=== PATIENT | female | born 1985 | race Caucasian/White ===

== ENCOUNTER 2022-01-11 08:11 | Emergency (ER) | payer BC, SELFPAY ==
[2022-01-11 08:12] VITALS: BP 140/76; PULSE 77; RESP 18; TEMP 36.8; O2SAT 100; BMI 28.3
[2022-01-11 08:32] LABS: Microscopic, Urine URINE MICROSCOPIC (MICROSCOPIC)
[2022-01-11 08:37] LABS: Basophils # 0.2 K/mm3 (0-0.2); Basophils % 2.6 % (0.1-2.0); Eosinophils # 0.1 K/mm3 (0.0-0.4); Eosinophils % 1.8 % (0.1-12.0); Hematocrit 37.2 % (37.0-47.0); Hemoglobin 12.3 g/dL (12.2-16.2); Lymphocytes # 1.6 K/mm3 (0.7-4.5); Lymphocytes % 27.2 % (10-50); Mean Corpuscular HGB Conc 33.1 g/dL (31.8-35.4); Mean Corpuscular Hemoglobin 27.1 pg (27.0-31.2); Mean Corpuscular Volume 81.8 fl (81-99); Mean Platelet Volume 8.5 fl (7.4-10.4); Monocytes # 0.4 K/mm3 (0.1-1.0); Monocytes % 6.3 % (1.7-9.3); Neutrophils # 3.7 K/mm3 (1.8-7.8); Neutrophils % 62.1 % (37.0-80.0); Platelet Count 213 K/mm3 (142-424); Red Blood Count 4.55 M/mm3 (4.20-5.40); Red Cell Distribution Width 16.2 % (11.5-17.5)
--- NOTE | 2022-01-11 08:41 | HMH.EDABDPAI ---
ED Disposition Clinical Impression: Gastroenteritis Disposition: Home, Self-Care Condition on Discharge: Good Instructions: DI for Acute Abdominal Pain Prescriptions: Hydrocod/Acet 5/325 mg [[place] 5/325mg tablet] 1 tab PO Q6HP PRN #12 tab PRN Reason: Moderate Pain Transmission Status: [facility] Dicyclomine HCl [Bentyl 10mg capsule] 10 mg PO QID #28 cap Transmission Status: Pending to [facility] Referrals: Tiff Villalobos APRN [Primary Care Provider] - - Critical Care Critical Care Time: No Attestation: On , the high probability of a clinically significant, sudden or life threatening deterioration of the following system(s) required my full and direct attention, intervention and personal management. The time I documented below is in addition to time spent performing reported procedures but includes the following listed in this critical care notation. Medical Decision Making - Medical Records Medical records reviewed: Yes: I reviewed the patient's medical records. - Jimmie Inquiry Pt receiving controlled substance: Yes Jimmie was queried for this patient: Yes Reference #:: [id number] Risks and benefits of using a controlled substance: were discussed with pt by me Vital Signs: 01/11/22 08:12 Temperature 98.2 F Temperature Source Oral Pulse Rate [Left Radial] 77 Respiratory Rate 18 Blood Pressure [Right Arm] 140/76 Blood Pressure Mean [Right Arm] 97 Blood Pressure Source [Right Arm] Automatic Cuff Blood Pressure Position [Right Arm] Sitting 02 Sat by Pulse Oximetry 100 Oxygen Delivery Method Room Air - Lab Data Lab Results 01/11/22 08:20: Urine Color Yellow, Urine Appearance Clear, Urine pH 7.5, Ur Specific [place] 1.010, Urine Protein Negative, Urine Glucose (UA) Negative, Urine Ketones Negative, Urine Blood Negative, Urine Nitrate Negative, Urine Bilirubin Negative, Urine Urobilinogen 0.2, Ur Leukocyte Esterase Negative, Urine WBC Occasional, Ur Squamous Epith Cells Occasional, Urine Bacteria Trace 01/11/22 08:20: WBC 6.0, RBC 4.55, Hgb 12.3, Hct 37.2, MCV 81.8, MCH 27.1, MCHC 33.1, RDW 16.2, Plt Count 213, MPV 8.5, Neut % (Auto) 62.1, Lymph % (Auto) 27.2, [place] % (Auto) 6.3, Eos % (Auto) 1.8, Baso % (Auto) 2.6 H, Neut # (Auto) 3.7, Lymph # (Auto) 1.6, [place] # (Auto) 0.4, Eos # (Auto) 0.1, Baso # (Auto) 0.2 01/11/22 08:20: Urine HCG, Qual Negative 01/11/22 08:20: Sodium 137, Potassium 3.9, Chloride 101, Carbon Dioxide 31 H, Anion Gap 8.9, BUN 18 H, Creatinine 0.70, Estimated Creat Clear 118, Estimated GFR 94, Est GFR ( Amer) 114, Glucose 122 H, Calcium 9.3, Total Bilirubin 0.3, AST 34, ALT 30, Alkaline Phosphatase 62, Troponin I < 0.01, Total Protein 7.7, Albumin 4.6, Globulin 3.1, Albumin/Globulin Ratio 1.5, Lipase 113 Result diagrams: 01/11/22 08:20 01/11/22 08:20 Orders (Tests/Meds): ED MEDICATIONS Discontinued Medications Generic Name Dose Route Start Last Admin Trade Name Freq PRN Reason Stop Dose Admin Sodium Chloride 1,000 mls @ 999 mls/hr 01/11/22 08:30 01/11/22 08:33 Sod Chlor 0.9% 1000ml Bag IV 01/11/22 09:30 999 mls/hr .Q1H1M LUCIAN Administration Iopamidol 75 ml 01/11/22 09:07 01/11/22 09:07 Iopamidol-370 (76%);100ml Bottle IV 01/11/22 09:08 75 ml ONCE ONE Administration Morphine Sulfate 4 mg 01/11/22 08:24 01/11/22 08:33 Morphine 4mg/Ml Syringe IV 01/11/22 08:25 4 mg ONCE ONE Administration Ondansetron HCl 4 mg 01/11/22 08:24 01/11/22 08:33 Ondansetron 4mg/2ml Vial IV 01/11/22 08:25 4 mg ONCE ONE Administration Sodium Chloride 10 ml 01/11/22 09:07 01/11/22 09:07 Sodium Chloride 0.9% 10ml Syr (Rad Only) IV 01/11/22 09:08 10 ml ONCE ONE Administration ORDERS Category Date Time Status Troponin I Q3H Lab 01/11/22 11:30 Ordered Troponin I Q3H Lab 01/11/22 14:30 Ordered - CT Data CT Scan: Abdomen, Pelvis Time Received: 10:[address] Reviewed: Yes: I have reviewed
[2022-01-11 08:43] LABS: Appearance,Urine CLEAR (Clear); Bilirubin,Urine Negative (Negative); Blood, Urine Negative (Negative); Chloride 101 mmol/L (98-107); Color,Urine YELLOW (Yellow); Glucose,Urine (UA) Negative (Negative); Ketones,Urine Negative (Negative); Leukocyte Esterase,Urine Negative (Negative); Nitrate,Urine Negative (Negative); PH,Urine 7.5 (5.0-8.5); Potassium 3.9 mmoL/L (3.5-5.1); Protein,Urine Negative (Negative); Sodium 137 mmol/L (136-145); Urobilinogen,Urine 0.2 EU/dl (0.2)
[2022-01-11 08:44] LABS: Urine Pregnancy, HCG Qual. Negative (Negative)
[2022-01-11 08:46] LABS: Alanine Aminotransferase 30 U/L (12-78); Albumin Level 4.6 g/dl (3.5-5.0); Alkaline Phosphatase 62 U/L (38-126); Anion Gap 8.9 mEq/L (5-15); Aspartate Amino Transferase 34 U/L (14-36); Bilirubin,Total 0.3 mg/dl (0.2-1.3); Blood Urea Nitrogen 18 mg/dl (7-17); Calcium 9.3 mg/dl (8.4-10.2); Carbon Dioxide 31 mmol/L (22.0-30.0); Creatinine Clearance Estimated 118 mL/min (50-200); Estimated Glomerular Filt Rate 94 ml/min (>60); GFR (African American) 114 ML/MIN (>60); Glucose 122 mg/dl (74-100); Lipase 113 U/L (23-300)
--- NOTE | 2022-01-11 08:53 | CT_ITS ---
FINAL REPORT CLINICAL HISTORY: epigastric, ruq pain FINDINGS: CT OF THE ABDOMEN AND PELVIS WITH CONTRAST Axial CT images of the abdomen and pelvis were obtained after the administration of IV contrast. Coronal reformatted images were also obtained and reviewed.This study was performed with techniques to keep radiation doses as low as reasonably achievable (ALARA). Individualized dose reduction techniques using automated exposure control or adjustment of mA and/or kV according to the patient's size were employed. Abdomen: The lung bases are clear. The heart is normal in size. The liver has an unremarkable appearance, without evidence of mass or biliary ductal dilatation. The gallbladder is present. The spleen is unremarkable. No adrenal mass is present. The pancreas has an unremarkable appearance. The kidneys are normal, without evidence of mass or hydronephrosis. The aorta is normal in caliber. There is no free fluid or adenopathy. No mass or abnormal fluid collection is seen. There are multiple fluid-filled small bowel loops in a nonspecific pattern. Pelvis: The appendix is not visualized. The urinary bladder is unremarkable. There is a large amount of stool within the colon. No inflammatory process is seen. There is no evidence of mass or adenopathy. There is no evidence of bowel obstruction. IMPRESSION: Multiple fluid-filled small bowel loops in a nonspecific pattern. Large amount of retained stool in the colon. Reviewed, Interpreted and Dictated by Juan José Pisano III, MD Transcribed by Aimee Vera Authenticated and [facility]
[2022-01-11 09:03] LABS: Bacteria,Urine Trace /lpf; Squamous Epithelial Cell,Urine Occasional #/hpf (0-5); WBC,Urine Occasional #/hpf (0-3)
[2022-01-11 09:11] LABS: Troponin I < 0.01 ng/ml (0.00-0.034)
[2022-01-11 09:55] LABS: Albumin/Globulin Ratio 1.5 (1.1-1.8); Globulin 3.1 g/dL (1.3-3.2); Total Protein,Serum 7.7 g/dl (6.3-8.2)
[2022-01-11 10:41] VITALS: BP 110/62; PULSE 52; RESP 20; TEMP 36.8; O2SAT 100
== END 2022-01-11 10:44 | disposition home or self-care (01) ==
PROVIDERS: Emergency Provider Emergency Medicine; PCP Nurse Practitioner Family
DX: K52.9 Noninfective gastroenteritis and colitis, unspecified (principal); Z88.0 Allergy status to penicillin
CPT/HCPCS: 74177; 80053; 81001; 81025; 83690; 84484; 85025; 96365; 96375; 99284; J2405; Q9967

== ENCOUNTER → 2022-04-23 06:28 | Outpatient (CLI) | payer BC, SELFPAY ==
[2022-04-23 18:33] LABS: Adenovirus,PCR Not Detected (NotDetected); Bordetella Pertussis Not Detected (NotDetected); Chlamydophila Pneumoniae, PCR Not Detected (NotDetected); Coronavirus 19, PCR Not Detected (NotDetected); Coronavirus 229E Not Detected (NotDetected); Coronavirus NL63 Not Detected (NotDetected); Coronavirus OC43 Not Detected (NotDetected); Coronovirus HKU1,PCR Not Detected (NotDetected); Human Metapneumovirus Not Detected (NotDetected); Influenza A, PCR Not Detected (NotDetected); Influenza AH1, 2009 Not Detected (NotDetected); Influenza AH1, PCR Not Detected (NotDetected); Influenza AH3,PCR Not Detected (NotDetected); Influenza B, PCR Not Detected (NotDetected); Mycoplasma Pneumoniae, PCR Not Detected (NotDetected); Parainfluenza 1, PCR Not Detected (NotDetected); Parainfluenza 2, PCR Not Detected (NotDetected); Parainfluenza 3, PCR Not Detected (NotDetected); Parainfluenza 4, PCR Not Detected (NotDetected); Respiratory Syncytial Virus Not Detected (NotDetected); Rhinovirus/Enterovirus Not Detected (NotDetected)
== END ==
LOC: LAB.DROPOF 04-24 06:29
PROVIDERS: PCP Nurse Practitioner; Visit Provider Nurse Practitioner
DX: Z20.822 Contact with and (suspected) exposure to COVID-19 (principal); J06.9 Acute upper respiratory infection, unspecified; J02.9 Acute pharyngitis, unspecified
CPT/HCPCS: 87581; 87632; 87798; C9803; U0003; U0005

== ENCOUNTER 2022-05-04 10:04 | Emergency (ER) | payer BC, SELFPAY ==
[2022-05-04 10:24] VITALS: BP 116/85; PULSE 107; RESP 18; TEMP 36.8; O2SAT 97; BMI 27.0
[2022-05-04 10:33] LABS: UTC Strep Screen (Rapid) Negative (Negative)
--- NOTE | 2022-05-04 10:37 | EXP.UTC ---
Discharge Plan Disposition Patient Disposition: Home, Self-Care Condition: Good Prescriptions Prescriptions: New methylprednisolone 4 mg Tablets,Dose Pack 4 mg PO DIRECTED Qty: 21 0RF moxifloxacin [Vigamox] 0.5 % drops 1 drp ophthalmic (eye) TID 7 Days Qty: 3 0RF azithromycin [Zithromax] 250 mg tablet 250 mg PO UD DOSE PK Qty: 6 0RF Rx Instructions: Take two (2) tablets today, then one (1) tablet days #2 thru #5 No Action loratadine 10 mg Capsule 10 mg PO DAILY Referrals Follow up/Referrals: Leslie Bains APRN [Primary Care Provider] - See instructions Activity Restrictions/Add. Instructions Additional Instructions/Restrictions: Drink plenty of fluids. Take tylenol or ibuprofen for pain or fever. Take the medications as directed. Follow up with your regular doctor. GO TO THE ER FOR ANY WORSENING SYMPTOMS Throw your tooth brush away and get a new one. Don't start the oral steroids until tomorrow, since you had the shot here today. Clinical Impressions Clinical Impression: Strep throat, Conjunctivitis Stand Alone Forms Stand Alone Forms: Work/School Release Instructions Patient Instructions: How to Instill Eye Drops, DI for Strep Throat, DI for Conjunctivitis Discharge ED Provider: Osmin Sotelo [facility] General Stated complaint: Pain and redness in both eyes Mode of Arrival: Ambulatory Source of Information: Patient Limitations: No Limitations Time Seen by Provider: 05/04/22 10:37 Description of Symptoms (Recalled from Triage Doc. by RN): pt comes in with c/o conjuctivitis, sore throat, head congestion. symptoms began monday 04/30. pt states that 04/23 she tested positive for strep and finished cefdinir for 10 days. HEENT Symptoms (Recalled from RN notes): Yes Resp Symptoms (Recalled from RN notes): No Skin Symptoms (Recalled from RN notes): No MS Symptoms (Recalled from RN notes): No Functional Status (Recalled from RN notes): n/a History of Present Illness Provider Complaint: She is here to follow up over her strep throat symptoms. She has also began to have eye matting and eye redness since yesterday. She was diagnosed with strep throat last week and treated with cefdinir. She states that she is getting worse instead of better. Related Data Home Medications Medication Instructions Recorded Confirmed loratadine 10 mg capsule 10 mg PO DAILY Allergy symptoms 05/04/22 05/04/22 Previous Rx's Medication Instructions Recorded azithromycin 250 mg tablet 250 mg PO UD DOSE PK #6 tabs 05/04/22 (Zithromax) methylprednisolone 4 mg tablets in 4 mg PO DIRECTED #21 tabs 05/04/22 a dose pack moxifloxacin 0.5 % eye drops 1 drp ophthalmic (eye) TID 7 days 05/04/22 (Vigamox) #3 mL Allergies Allergy/AdvReac Type Severity Reaction Status Date / Time Penicillins Allergy Verified 05/04/22 10:27 Worker's Comp Is this a Worker's Comp case?: No PFSH PFSH Social History Smoking Status: Never smoker alcohol intake: never current occupational status: employed Travel in the last 8 weeks: None ROS Obtained: Yes All systems reviewed & no additional complaints except as documented Constitutional Constitutional: Reports chills and Reports fever(s) Eyes Eyes: Denies change in vision, Reports eye discharge, Reports irritation and Denies eye pain ENT Ears, Nose, Mouth, and Throat: Reports as per HPI Cardiovascular Cardiovascular: Denies chest pain Respiratory Respiratory: Denies chest congestion and Reports cough Gastrointestinal Gastrointestingal: Reports nausea; Denies abdominal pain, constipation, cramping, diarrhea or vomiting Musculoskeletal Musculoskeletal: Denies arthralgias Integumentary/Breasts Skin/Breast: Denies rash Neurologic Neurologic: Denies paresthesias Physical Exam General General appearance: alert and in no apparent distress Head Head exam: atraumatic, normocephalic and normal inspection Eye Eye exam: Pres
[2022-05-04 11:04] VITALS: BP 116/85; PULSE 107; RESP 18; TEMP 36.8
== END 2022-05-04 11:04 | disposition home or self-care (01) ==
PROVIDERS: Emergency Provider Nurse Practitioner Family; PCP Nurse Practitioner
DX: H10.9 Unspecified conjunctivitis (principal); J02.9 Acute pharyngitis, unspecified
CPT/HCPCS: 87880; 96372; 99212; G0463; J0696

== ENCOUNTER → 2022-07-25 14:45 | Outpatient (CLI) | payer BC, SELFPAY ==
[2022-07-25 18:51] LABS: Basophils # 0.1 K/mm3 (0-0.2); Basophils % 0.6 % (0.1-2.0); Eosinophils # 0.1 K/mm3 (0.0-0.4); Eosinophils % 0.9 % (0.1-12.0); Hematocrit 38.7 % (37.0-47.0); Hemoglobin 12.4 g/dL (12.2-16.2); Lymphocytes # 1.8 K/mm3 (0.7-4.5); Lymphocytes % 24.9 % (10-50); Mean Corpuscular HGB Conc 32.1 g/dL (31.8-35.4); Mean Corpuscular Hemoglobin 27.9 pg (27.0-31.2); Mean Corpuscular Volume 86.8 fl (81-99); Mean Platelet Volume 8.8 fl (7.4-10.4); Monocytes # 0.3 K/mm3 (0.1-1.0); Neutrophils # 5.1 K/mm3 (1.8-7.8); Neutrophils % 69.6 % (37.0-80.0); Platelet Count 245 K/mm3 (142-424); Red Blood Count 4.45 M/mm3 (4.20-5.40); Red Cell Distribution Width 14.3 % (11.5-17.5); White Blood Count 7.3 K/mm3 (4.8-10.8)
[2022-07-25 19:07] LABS: Alanine Aminotransferase 17 U/L (12-78); Albumin Level 4.6 g/dl (3.5-5.0); Albumin/Globulin Ratio 1.8 (1.1-1.8); Alkaline Phosphatase 69 U/L (38-126); Anion Gap 14.2 mEq/L (5-15); Aspartate Amino Transferase 24 U/L (14-36); Bilirubin,Total 0.3 mg/dl (0.2-1.3); Blood Urea Nitrogen 18 mg/dl (7-17); Calcium 9.3 mg/dl (8.4-10.2); Carbon Dioxide 25 mmol/L (22.0-30.0); Chloride 102 mmol/L (98-107); Chol/HDL Ratio 3.5 (1-3.5); Cholesterol 163 mg/dl (140-200); Estimated Glomerular Filt Rate 81 ml/min (>60); GFR (African American) 98 ML/MIN (>60); Globulin 2.6 g/dL (1.3-3.2); Glucose 98 mg/dl (74-100); HDL Cholesterol 46 mg/dl (40-60); Potassium 4.2 mmoL/L (3.5-5.1); Sodium 137 mmol/L (136-145); Total Protein,Serum 7.2 g/dl (6.3-8.2); Triglycerides 88 mg/dl (30-150); VLDL Cholesterol 18 mg/dL (0-40)
[2022-07-25 19:19] LABS: Direct LDL Cholesterol 91.66 mg/dL (100-129)
[2022-07-25 19:40] LABS: Thyroid Stimulating Hormone 0.76 uIU/mL (0.465-4.68)
[2022-07-27 13:15] LABS: HIV Screen 4th Generation wRfx Non Reactive (Non Reactive); HSV 2 IgG, Type Spec <0.91 index (0.00-0.90); Rapid Plasma Reagin Ab Titer Non Reactive (NonRea<1:1)
== END ==
LOC: LAB.DROPOF 07-26 06:56
PROVIDERS: PCP Nurse Practitioner; Visit Provider Nurse Practitioner
DX: Z11.3 Encounter for screening for infections with a predominantly sexual mode of transmission (principal); Z12.4 Encounter for screening for malignant neoplasm of cervix; Z13.0 Encounter for screening for diseases of the blood and blood-forming organs and certain disorders involving the immune mechanism; Z13.1 Encounter for screening for diabetes mellitus; Z13.220 Encounter for screening for lipoid disorders; Z13.29 Encounter for screening for other suspected endocrine disorder; Z11.4 Encounter for screening for human immunodeficiency virus [HIV]
CPT/HCPCS: 80053; 80061; 83036; 84443; 85025; 86592; 86695; 86703; 86790; G0432

== ENCOUNTER 2023-01-22 08:00 | Outpatient (RCR) | payer OTHER, SELFPAY ==
--- NOTE | 2023-01-03 09:21 | HMH.PTOPEV ---
PT Outpatient Evaluation Rehab PT Outpatient Evaluation Start: 01/03/23 08:31 Freq: Status: Active Protocol: Document 01/03/23 08:31 MARK (Rec: 01/03/23 09:21 MARK [id number]) E-signed By David Malave, PT Outpatient Therapy Subjective History Subjective History Pt presents s/p acute injury/ strain to left quad. Pt reports injury occurred while playing softball ~2 days ago. Pt reports transitioning from jog to run/sprint and feeling 'tearing sensation' in anterior left thigh w/ immediate onset pain. Pt reports pain, tightness, and tenderness since injury. Chief Complaint Pain,Stiff,Weakness Symptom Type Ache,Sharp,Dull Symptoms Relieved By Rest/Positioning,Ice,Elevation Symptoms Aggravated By Standing,Physical Activity, Walking Prior Functional Limitations None Current Functional Limitations Standing,Squatting,Walking, Stairs Symptom Description Intermittent Level of pain today (0-10) 0 Pain scale - at its best (0-10) 0 Pain scale - at its worst (0-10) 7 Hip/Knee Eval Gait Observation General Gait Pattern Observation Antalgic Gait Assistive Device Assistive Devices None / NA Palpation Tenderness left Knee Palpation Finding Tenderness Knee Palpation Overall Comment 3/4 rectus femoris MMT Hip Flexion Strength Grade 3- Fair- Hip Abduction Strength Grade 4- Good- Hip Adduction Strength Grade 4- Good- Hip Extension Strength Grade 4- Good- Hip External Rotation Strength Grade 4 Good Hip Internal Rotation Strength Grade 4 Good Knee Extension Strength Grade 3- Fair- Knee Flexion Strength Grade 3+ Fair+ ROM Knee Flexion Active Range of Motion ( 0-125 in supine degrees) Knee Flexion Passive Range of Motion ( 0-65 in prone degrees) Outpatient Therapy Assessment Impairments Problems/Impairmments Palpation Tenderness,Impaired Range of Motion,Impaired Strength,Impaired Gait Pattern ,Impaired Walking,Impaired Work Activities,Subjective C/O Pain,Impaired Self Care/Self Management Prognosis Rehab Potential Good Clinical Impression Consistent with Diagnosis Yes Short Term Goals Number of Weeks 4 Decreased Palpati
== END 2023-01-22 08:05 | disposition home or self-care (01) ==
LOC: PT 08:00
PROVIDERS: Visit Provider Family Medicine
DX: M79.652 Pain in left thigh (principal); S76.112A Strain of left quadriceps muscle, fascia and tendon, initial encounter
CPT/HCPCS: 20560; 97010; 97014; 97035; 97110; 97140; 97163; 97530; G0283

== ENCOUNTER 2023-11-27 18:00 | Outpatient (CLI) | payer BC, SELFPAY ==
[2023-11-27 18:21] LABS: Basophils % 0.6 % (0.1-2.0); Eosinophils # 0.1 K/mm3 (0.0-0.4); Eosinophils % 1.3 % (0.1-12.0); Hematocrit 38.5 % (37.0-47.0); Lymphocytes # 1.5 K/mm3 (0.7-4.5); Lymphocytes % 26.9 % (10-50); Mean Corpuscular HGB Conc 31.2 g/dL (31.8-35.4); Mean Corpuscular Hemoglobin 26.5 pg (27.0-31.2); Mean Corpuscular Volume 84.9 fl (81-99); Mean Platelet Volume 8.9 fl (7.4-10.4); Monocytes # 0.3 K/mm3 (0.1-1.0); Monocytes % 5.2 % (1.7-9.3); Neutrophils # 3.6 K/mm3 (1.8-7.8); Platelet Count 256 K/mm3 (142-424); Red Blood Count 4.53 M/mm3 (4.20-5.40); Red Cell Distribution Width 16.3 % (11.5-17.5); White Blood Count 5.5 K/mm3 (4.8-10.8)
[2023-11-27 18:52] LABS: 25-OH Vitamin D, Total 52.8 ng/mL (30-100)
[2023-11-27 19:02] LABS: Hemoglobin A1C 5.2 % (4.0-6.0)
[2023-11-27 20:14] LABS: Alanine Aminotransferase 21 U/L (12-78); Albumin Level 4.4 g/dl (3.5-5.0); Albumin/Globulin Ratio 1.6 (1.1-1.8); Alkaline Phosphatase 56 U/L (38-126); Aspartate Amino Transferase 33 U/L (14-36); Bilirubin,Total 0.5 mg/dl (0.2-1.3); Blood Urea Nitrogen 15 mg/dl (7-17); Calcium 9.1 mg/dl (8.4-10.2); Carbon Dioxide 25 mmol/L (22.0-30.0); Chloride 108 mmol/L (98-107); Cholesterol 210 mg/dl (140-200); Estimated Glomerular Filt Rate 80 ml/min (>60); GFR (African American) 97 ML/MIN (>60); Globulin 2.8 g/dL (1.3-3.2); Glucose 92 mg/dl (74-100); HDL Cholesterol 52 mg/dl (40-60); Sodium 141 mmol/L (136-145); Total Protein,Serum 7.2 g/dl (6.3-8.2); Triglycerides 90 mg/dl (30-150); VLDL Cholesterol 18 mg/dL (0-40)
[2023-11-27 20:25] LABS: Direct LDL Cholesterol 123.43 mg/dL (100-129)
[2023-11-27 20:45] LABS: Thyroid Stimulating Hormone 1.21 uIU/mL (0.465-4.68)
[2023-11-27 21:04] LABS: Vitamin B12 582 pg/mL (239-931)
== END 2023-11-27 23:59 | disposition home or self-care (01) ==
LOC: LAB.DROPOF 11-28 09:27
PROVIDERS: PCP Nurse Practitioner; Visit Provider Nurse Practitioner
DX: R07.89 Other chest pain (principal); Z13.1 Encounter for screening for diabetes mellitus; Z13.220 Encounter for screening for lipoid disorders; Z13.29 Encounter for screening for other suspected endocrine disorder; Z13.0 Encounter for screening for diseases of the blood and blood-forming organs and certain disorders involving the immune mechanism; Z13.21 Encounter for screening for nutritional disorder
CPT/HCPCS: 80053; 80061; 82306; 82607; 83036; 84443; 85025

== ENCOUNTER 2024-06-08 10:30 | Outpatient (CLI) | payer BC, SELFPAY ==
[2024-06-08 18:20] LABS: Basophils % 0.6 % (0.1-2.0); Eosinophils # 0.1 K/mm3 (0.0-0.4); Eosinophils % 2.5 % (0.1-12.0); Hematocrit 38.7 % (37.0-47.0); Hemoglobin 12.4 g/dL (12.2-16.2); Lymphocytes # 1.3 K/mm3 (0.7-4.5); Lymphocytes % 27.6 % (10-50); Mean Corpuscular HGB Conc 32.2 g/dL (31.8-35.4); Mean Corpuscular Hemoglobin 27.7 pg (27.0-31.2); Mean Corpuscular Volume 85.9 fl (81-99); Monocytes # 0.2 K/mm3 (0.1-1.0); Monocytes % 5.3 % (1.7-9.3); Neutrophils # 2.9 K/mm3 (1.8-7.8); Neutrophils % 63.9 % (37.0-80.0); Platelet Count 246 K/mm3 (142-424); Red Cell Distribution Width 15.3 % (11.5-17.5); White Blood Count 4.5 K/mm3 (4.8-10.8)
[2024-06-08 18:47] LABS: Alanine Aminotransferase 17 U/L (12-78); Albumin Level 4.2 g/dl (3.5-5.0); Albumin/Globulin Ratio 1.6 (1.1-1.8); Alkaline Phosphatase 42 U/L (38-126); Anion Gap 16.3 mEq/L (5-15); Aspartate Amino Transferase 21 U/L (14-36); Bilirubin,Total 0.5 mg/dl (0.2-1.3); Blood Urea Nitrogen 14 mg/dl (7-17); Calcium 8.8 mg/dl (8.4-10.2); Carbon Dioxide 26 mmol/L (22.0-30.0); Chloride 100 mmol/L (98-107); Estimated Glomerular Filt Rate 93 ml/min (>60); GFR (African American) 113 ML/MIN (>60); Globulin 2.6 g/dL (1.3-3.2); Glucose 101 mg/dl (74-100); Potassium 4.3 mmoL/L (3.5-5.1); Sodium 138 mmol/L (136-145); Total Protein,Serum 6.8 g/dl (6.3-8.2); Uric Acid 4.2 mg/dl (2.5-6.2)
[2024-06-08 18:58] LABS: Erythrocyte Sedimentation Rate 17 mm/hr (0-20)
[2024-06-10 12:24] LABS: Anti-Centromere B Antibodies <0.2 AI (0.0-0.9); Anti-DNA (DS) Ab Qn <1 IU/mL (0-9); Anti-Jo-1 <0.2 AI (0.0-0.9); Anti-Smith Antibody <0.2 AI (0.0-0.9); Antichromatin Antibodies <0.2 AI (0.0-0.9); Antiscleroderma-70 Antibodies <0.2 AI (0.0-0.9); RNP Antibodies <0.2 AI (0.0-0.9); Sjogren's Anti-SS-A <0.2 AI (0.0-0.9); Sjogren's Anti-SS-B <0.2 AI (0.0-0.9)
[2024-06-10 13:20] LABS: RA Latex Turbid. <10.0 IU/mL (<14.0)
== END 2024-06-08 23:59 | disposition home or self-care (01) ==
LOC: LAB.DROPOF 06-09 13:05
PROVIDERS: PCP Nurse Practitioner; Visit Provider Nurse Practitioner
DX: M25.551 Pain in right hip (principal)
CPT/HCPCS: 80053; 84550; 85025; 85651; 86038; 86140; 86225; 86235; 86431

== ENCOUNTER 2024-06-23 12:35 | Outpatient (CLI) | payer BC, SELFPAY ==
--- NOTE | 2024-06-23 12:42 | MR_ITS ---
FINAL REPORT CLINICAL HISTORY: right hip pain COMPARISON: None FINDINGS: Multiplanar MR imaging of the right hip was performed without contrast. There is no evidence of fracture or dislocation. There is no evidence of avascular necrosis. No bony mass is identified. There is linear increased signal at the anterior superior labrum best seen on sagittal T2 image 17. A focal tear in this region can not be excluded. No significant joint effusion is seen. Gluteus minimus peritendinitis is noted bilaterally. The musculature is intact. No soft tissue mass or cyst is identified. IMPRESSION: Possible labral tear as above. Bilateral gluteus minimus peritendinitis. Reviewed, Interpreted and Dictated by Juan José Pisano III, MD Transcribed by Jennifer Laws Authenticated and [facility]
== END 2024-06-23 23:59 | disposition home or self-care (01) ==
LOC: RAD 12:37
PROVIDERS: PCP Nurse Practitioner; Visit Provider Nurse Practitioner
DX: M25.551 Pain in right hip (principal)
CPT/HCPCS: 73721

== ENCOUNTER 2025-04-07 09:30 | Outpatient (CLI) | payer BC, SELFPAY ==
[2025-04-07 19:29] LABS: Hepatitis C Ab Qual. W/ RFX NEGATIVE (Negative)
--- OUTSIDE RECORDS SUMMARY | 2025-04-08 12:38 | XMS_ITS | Encounter Summary ---
Author Organization [facility] Address [address] [place] [address] Care Team Providers Care Industrial Custodian Name Role Phone Pcp, No Primary Care Provider Unavailabl e Reason for Referral * Consultation (Routine) - Closed Specialty Diagnoses / Procedures Referred By Contpaz t Referred To Contact Orthopaedic Surgery Diagnoses Right hip pain Kale Cantu MD [address] [place] [id number] Phone: tel: fax: [facility] [address] [place] [address] Phone: tel: fax: Referral ID Status Reason Start Date Expiration Date V isits Requested Visits Authorized [id number] Closed Specialty Services Required 06/09/2024 12/09/2025 1 1 Encounter Details Date Type Department Care Team (Late st Contact Info) Description 06/09/2024 Community [facility] [address] [place] [address] Kale Cantu MD [address] [place] [address] Right hip pain (Primary Dx) Social History Tobacco Use Types Packs/Day Years Used Date Smoking Tobacco: Never Smokeless Tobacco: Never Alcohol Use Standard Drinks/Week Comments Yes 0 (1 standard drink = 0.6 oz pur e alcohol) social use Comments No Sex and Gender Information Value Date Recorded Sex Assigned at Not on file Legal Sex Female 7:00 PM EDT Gender Identity Not on file Sexual Orientation Not on file documented as of this encounter Plan of Treatment Scheduled Referrals Name Type Priority Associated Diagnoses Order Schedule Ambulatory referral to General Orthopaedics Outpatient Referral Routine Right hip pain 1 Occurrences starting 06/09/2024 until 12/08/2025 documented as of this encounter Visit Diagnoses Diagnosis Right hip pain- Primary Pain in joint, pelvic region and thigh documented in this encounter Additional Health Concerns Assessment Noted Time A fall risk assessment has been complete d for the patient 04/14/2021 1:23 PM EDT A Body Mass Index follow-up plan has been documented for the patient 11/25/2023 2:25 PM EDT documented as of this encounter Care Teams Industrial Custodian Relationship Specialty Start Date End Date Pcp, [place] [address] PCP - General Family Medicine 02/26/23 documented as of this encounter
--- OUTSIDE RECORDS SUMMARY | 2025-04-08 12:38 | XMS_ITS | Encounter Summary ---
Author Organization Healthcare Address [address] [place] [address] Care Team Providers Care Deputy Probation Officer Name Role Phone Tiff Villalobos APRN Primary Care Provider Pcp, No Primary Care Provider Unavailabl e Encounter Details Date Type Department Care Team (Late st Contact Info) Description 03/05/2019 [facility] [address] [place] [address] Dental, Provider, DDS [address] [place], [place] [id number] Social History Tobacco Use Types Packs/Day Years Used Date Smoking Tobacco: Never Assessed Comments Unknown Sex and Gender Information Value Date Recorded Sex Assigned at Not on file Legal Sex Female 7:00 PM EDT Gender Identity Not on file Sexual Orientation Not on file documented as of this encounter Plan of Treatment Not on file documented as of this encounter Visit Diagnoses Not on filedocumented in this encounter Additional Health Concerns Infection Onset Date Last Indicated Resolved Time COVID-19 Rule-Out 04/13/2021 04/13/2021 04/13/2021 6:21 PM EDT COVID 19 (Confirmed) 04/13/2021 04/13/2021 021 5:23 AM EDT documented as of this encounter Care Teams Deputy Probation Officer Relationship Specialty Start Date End Date Tiff Villalobos APRN [address] [place] [id number] PCP - General 12/23/20 01/22/23 Pcp, Ban [address] [place] [address] PCP - General Family Medicine 02/26/23 documented as of this encounter
--- OUTSIDE RECORDS SUMMARY | 2025-04-08 12:38 | XMS_ITS | Clinical Summary ---
Author Organization [facility] Address [address] [place] [address] Care Team Providers Care Recreational Therapy Aide Name Role Phone Pcp, No Primary Care Provider Unavailabl e Allergies Active Allergy Reactions Criticality Noted Date Comments Penicillin G Unknown - Patient st ates they do not know rxn details Low 05/07/2021 Penicillins Unknown - Patient st ates they do not know rxn details Low 12/10/2014 Penicillins Medications * This document contains information received from the source organization and may not represent a complete record from that organization. meloxicam (Mobic) 15 MG tablet Take 1 tablet (15 mg) by mouth 1 (one) time each day. 06/08/20 24 Active predniSONE (Deltasone) 20 MG tablet TAKE 1 TABLET BY MOUTH TWICE DAILY FOR 5 DAYS THEN 1 TABLET ONCE DAILY FOR 5 DAYS 06/24/20 24 Active diclofenac (Voltaren) 1 % topical gelIndications:Rig ht hip pain,Greater trochanteric bursitis of right hip Place 2-4 g on the skin 4 (four) times a day. Apply as directed to R lateral hip and gluteal muscles up to 4X daily. 150 g 1 07/23/20 24 Active Additional Information Patient not taking.Reported on 02/03/2025 ibuprofen 800 MG tablet Take 1 tablet by mouth every 8 hours as needed for mild pain. 30 tablet 12/26/19 25 Active Additional Information Patient not taking.Reported on 02/03/2025 acetaminophen (Tylenol) 500 MG tablet Take 2 tablets by mouth every 8 hours as needed for pain. 30 tablet 12/26/19 Active Additional Information Patient not taking.Reported on 02/03/2025 docusate sodium (Colace) 100 MG capsule Take 1 capsule by mouth 2 times a day as needed for constipation. 30 capsule 12/26/19 Active Additional Information Patient not taking.Reported on 02/03/2025 polyethylene glycol (Miralax) 17 g packet Take 17 g by mouth daily. 10 packet 12/26/19 Active Additional Information Patient not taking.Reported on 02/03/2025 ondansetron ODT (Zofran-ODT) 4 MG disintegrating tablet Dissolve 1 tablet on the tongue every 8 hours as needed for nausea or vomiting. 20 tablet 12/26/19 Active Additional Information Patient not taking.Reported on 02/03/2025 oxyCODONE (Roxicodone) 5 MG immediate release tablet Take 1 tablet by mouth every 4 hours as needed for severe pain. 12 tablet 12/26/19 Active Additional Information Patient not taking.Reported on 02/03/2025 Active Problems Problem Noted Date Diagnosed Date Acute URI 12/16/2024 Conjunctivitis 12/16/2024 Gastroenteritis 12/16/2024 Adenomyosis 07/27/2024 Abnormal uterine bleeding (AUB) 11/25/2023 COVID-19 04/13/2021 Abscess 10/22/2019 UTI symptoms 06/23/2019 Seasonal allergies 07/07/2018 Vaginal bleeding during , antepartum Resolved Problems Problem Noted Date Diagnosed Date Resolved Date Strep throat 12/16/2024 12/16/2024 Encounters Date Type Department Care Team Description 02/03/2025 1:15 PM EDT Office Visit Medical Office Building Obstetrics and Gynecology [address], [address] [place] [address] Quinn Crowell MD History of robot-assisted laparoscopic hysterectomy (Primary Dx) 02/03/2025 Travel 01/12/2025 Results Follow-Up Medical Office Building Obstetrics and Gynecology [address], [address] [place] [address] Quinn Crowell MD from Last 3 Months Immunizations Immunization Administration Dates Next Due Hep A, Unspecified 11/24/2018,03/26/2018 Hep B, adult 10/02/2013,06/05/2013,04/03/2013 Influenza, Unspecified 04/22/2020,2018,05/29/2018,2016,06/05/2016,05/30/2015 Influenza, injectable, quadrivalent 05/31/2014 Influenza, injectable, quadr ivalent, preservative free 05/16/2023,05/16/2021,07/01/2019 Influenza, seasonal, injecta ble, preservative free 05/18/2016 MMR 05/15/2022,,02/26/1996,1986 Moderna COVID-19 Vaccine (Re d Cap) 12+ years 07/26/2021,03/28/2021 Tdap 01/30/2022,05/11/2011 Family History Medical History Relation Name Comments Conversions - Other Father Patient' s father is Depression Father Heart attack Maternal Grandfather Hyperlipidemia Maternal Grandfather Hypertension, benign Maternal Grandfather Diabetes type II Maternal Grandmother Depression Mother Hyperlipidemia Mother Hypertension, benign Mother Hypothyroidism Mother Diabetes type II Sister Hyperlipidemia Sister Hypertension, benign Sister Relation Name Status Comments Father Maternal Grandfather Maternal Grandmother Mother Sister Social History Tobacco Use Types Packs/Day Years Used Date Smoking Tobacco: Never Passive Smoke Exposure: Never Smokeless Tobacco: Never Tobacco Cessation:Counseling Given: Not Answered Alcohol Use Standard Drinks/Week Comments Yes 0 (1 standard drink = 0.6 oz pur e alcohol) social use PHQ-2 Answer Date Recorded Patient Health Questionnaire-2 Score 0 07/23/2024 Comments No Sex and Gender Information Value Date Recorded Sex Assigned at Not on file Legal Sex Female 7:00 PM EDT Gender Identity Not on file Sexual Orientation Not on file Last Filed Vital Signs Vital Sign Reading Time Taken Comments Blood Pressure 120/84 02/03/2025 12:59 PM EDT Pulse 67 02/03/2025 12:59 PM EDT Temperature 36.6 C (97.8 F) 02/03/2025 12:59 PM EDT Respiratory Rate 16 02/03/2025 12:59 PM EDT Oxygen Saturation 100% 02/03/2025 12:59 PM EDT Inhaled Oxygen Concentration - - Weight 75.1 kg (165 lb 9.1 oz) 02/03/2025 12:59 PM EDT Height 162.6 cm (5' 4 ) 02/03/2025 12:59 PM EDT Body Mass Index 28.42 02/03/2025 12:59 PM EDT Plan of Treatment Health Maintenance Due Date Last Done Comments [facility]-/Child/Adol SDOH Screenings 1984 [facility]- SDOH Screenings 2002 [facility]-Adult SDOH Screenings 2002 [facility]-Zoster Vaccines (1 of 2) 12/06/2003 HPV Vaccines (1 - 3-dose SCDM series) 12/06/2011 [id number] Vaccine (3 - Moderna risk series) 08/23/2021 07/26/2021, 03/28/2021 [facility]-Varicella Vaccines (1 of 2 - 13+ 2-dose series) 06/12/2022 [facility]-Influenza Vaccine (#1) 04/12/202507/15, 05/16/2023, 05/16/2021, Additional history exists [facility]-Depression Screening 07/23/2025 07/23/2024 [facility]-DTaP,Tdap,and Td Vaccines (3 - Td or Tdap) 01/31/2032 01/30/2022, 05/11/2011 [facility]-Cervical Cancer Screening Discontinued [facility]-Pap Smear Discontinued 07/25/2010 [facility]-Hepatitis B Vaccines Completed 014, 06/05/2013, 04/03/2013 [facility]-Hepatitis A Vaccines Aged Out 11/24/2018, 03/12 No longer eligible based on patient's age to complete this topic [facility]-HIV Screening Completed 07/02/2020, 05/18/2016 [facility]-Hepatitis C Screening Completed 07/02/2020 [facility]-Obesity Intervention Completed 025, 12/16/2024, 07/27/2024, Additional history exists [facility]-HIB Vaccines Aged Out No longer e ligible based on patient's age to complete this topic [facility]-HPV/Cotest Discontinued [facility]-IPV Vaccines Aged Out No longer e ligible based on patient's age to complete this topic [facility]-Pneumococcal Vaccine: Pediatrics (0 to 5 Years) and At-Risk Patients (6 to 49 Years) Aged Out No longer eligible based on patient's age to complete this topic [facility]-Rotavirus Vaccines Aged Out No lo nger eligible based on patient's age to complete this topic Procedures Procedure Name Priority Date/Time Associated Diagnosis Comments HEPATITIS C ANTIBODY - ED W/REFLEX TO HCV QUANT PCR Routine 07/02/2020 2:43 PM EST HIV 1/2 ANTIBODY/ANTIGEN SCREEN WITH REFLEX TO HIV I/II DIFFERENTIATION Routine 07/02/2020 2:43 PM EST from Last 3 Months or Most Recently Relevant to Health Maintenance Results * HIV 1 & 2 Antibody/Antigen Screen (07/02/2020 2:43 PM EST) HIV 1 Result NONREACTIVE Screening for HIV 1 and 2 antibodies is NONREACTIVE. No confirmatory testing is required. SUNQUEST 07/02/2020 2:43 PM EST 07/02/2020 4:05 PM EST Osmin Brown LAB BLOOD ORDERABLES Final Resul t Performing Organization Address [facility] de Phone Number SUNQUEST * [place] Hepatitis C Antibody (07/02/2020 2:43 PM EST) [place] Hepatitis C Ab NEGATIVE Reference Range: Negative SUNQUEST 07/02/2020 2:43 PM EST 07/02/2020 4:05 PM EST Lilia Grimes MD LAB BLOOD ORDERABLES Final Res ult Performing Organization Address [facility] Co de Phone Number SUNQUEST from Last 3 Months or Most Recently Relevant to Health Maintenance Insurance [employer] Care Teams Recreational Therapy Aide Relationship Specialty Start Date End Date Pcp, [place] [address] PCP - General Family Medicine 02/26/23
--- OUTSIDE RECORDS SUMMARY | 2025-04-08 12:38 | XMS_ITS | Encounter Summary ---
Author Organization Healthcare Address [address] [place] [address] Care Team Providers Care Windows Migration Technician Name Role Phone Pcp, No Primary Care Provider Unavailabl e Encounter Details Date Type Department Care Team ([facility] Contact Info) Description 01/12/2025 Results Follow-Up Medical Office Building Obstetrics and Gynecology [address], [address] [place] [address] Quinn Crowell MD [address] [place] [address] Social History Tobacco Use Types Packs/Day Years Used Date Smoking Tobacco: Never Passive Smoke Exposure: Never Smokeless Tobacco: Never Alcohol Use Standard [...] on file documented as of this encounter Miscellaneous Notes * Telephone Encounter - Quinn Crowell MD - 01/12/2025 10:10 AM EDT Called pt to check on post-op status and review pathology results. No answer and VM left reviewing through pathology findings. Pt told to call the office if she has any questions or concerns. documented in this encounter Plan of Treatment Not on file documented as of this encounter Visit Diagnoses Not on filedocumented in this encounter Additional Health Concerns Assessment Noted Time A fall risk assessment has been complete d for the patient 07/23/2024 9:06 AM EST A Body Mass Index follow-up plan has been documented for the patient 12/16/2024 1:29 PM EDT documented as of this encounter Care Teams Windows Migration Technician Relationship Specialty Start Date End Date Pcp, [place] [address] PCP - General Family Medicine 02/26/23 documented as of this encounter
--- OUTSIDE RECORDS SUMMARY | 2025-04-08 12:38 | XMS_ITS | Clinical Summary ---
Author Organization [facility] [place] Address [address] [place] [address] Phone Care Team Providers Care Glass Blower Name Role Phone Unavailable Primary Care Provider Unavailabl e Allergies Active Allergy Reactions Criticality Noted Date Comments Penicillins 05/26/2010 Medications loratadine (CLARITIN) 10 mg Oral TabletIndications :Acute bronchitis, unspecified organism Take 1 Tab by mouth daily as needed. 30 Tab 2 07/18/2015 Active vit-iron fumarate-FA 27-0.8 mg Oral Tablet Take 1 Tab by mouth daily. Active docusate sodium (COLACE) 100 mg Oral Capsule Take 100 mg by mouth daily. Active Active Problems Problem Noted Date Diagnosed Date 25 weeks gestation of 09/13/2016 Vaginal bleeding during , antepartum Previous section 09/13/2016 Immunizations Immunization Administration Dates Next Due Influenza Vaccine Quadrivalent 05/31/2014 Tdap 05/11/2011 Surgical History Surgery Date Site/Laterality Comments SECTION SECTION 06/16/2010 Abdomen/N/A REPEAT SECTION - SCIP performed by JULIANA CEVALLOS at [facility] BREAST SURGERY Medical History Medical History Date Comments Unspecified breast disorder Family History Medical History Relation Name Comments Diabetes Maternal Grandmother Hypertension Paternal Grandfather Cancer Sister Breast Cancer Neg Hx Colon Cancer Neg Hx Eclampsia Neg Hx Ovarian Cancer Neg Hx Labor Neg Hx Spont Abortions Neg Hx Stroke Neg Hx Relation Name Status Comments Maternal Grandmother Paternal Grandfather Sister Social History Tobacco Use Types Packs/Day Years Used Date Smoking Tobacco: Never Smokeless Tobacco: Never Alcohol Use Standard Drinks/Week Comments No 0 (1 standard drink = 0.6 oz pur e alcohol) Sexually Active Control Partners Comments Yes Male Comments No Sex and Gender Information Value Date Recorded Sex Assigned at Not on file Legal Sex Female 12:23 PM EDT Gender Identity Not on file Sexual Orientation Not on file Obstetrics History Para Term AB IAB SAB Ectopic Multiple Livin g Live Births 3 2 1 2 1 Date Outcome GA Total Labor Labor/2nd/3rd Weight Sex Type Anes PTL Carmen A1 A5 Name Clin Term 39w 0d 8 lb 3.4 oz (3.725 kg) F CS-LT ranv Spinal N Livin g 8 9 STEVEN ,KATELYN BABY 1 Cindy coombs, Kathleen mejia MD Delivery Location:[facility] 006 Para M CS-LT ranv Last Filed Vital Signs Vital Sign Reading Time Taken Comments Blood Pressure 118/80 11/01/2016 1:50 PM EDT Pulse 97 11/01/2016 1:50 PM EDT Temperature 36.5 C (97.7 F) 11/01/2016 1:50 PM EDT Respiratory Rate 18 11/01/2016 1:50 PM EDT Oxygen Saturation 98% 11/01/2016 1:50 PM EDT Inhaled Oxygen Concentration - - Weight 99 kg (218 lb 3.2 oz) 11/01/2016 1:50 PM EDT Height 162.6 cm (5' 4 ) 11/01/2016 1:50 PM EDT Body Mass Index 37.45 11/01/2016 1:50 PM EDT Plan of Treatment Health Maintenance Due Date Last Done Comments Annual Wellness Exam 12/06/1987 Pap Smear 07/25/2013 07/25/2010, 11/29/2009 Cervical Cancer Screening 2014 HPV/Pap Cotest 2014 COVID-19 Vaccine ( season) 2024 07/26/2021, 03/28/2021 Breast Cancer Screening 2024 Influenza Vaccine (#1) 2025 , 05/16/2021, 07/01/2019, Additional history exists DTaP/TDaP/Td (3 - Td or Tdap) 01/31/2032 01/30/2022, 05/11/2011 Hepatitis B Vaccine Completed 10/02/2013, 06/05/2013, 04/03/2013 Meningococcal B Vaccine Aged Out No l onger eligible based on patient's age to complete this topic Pneumococcal Vaccine 0-49 Aged Out No longer eligible based on patient's age to complete this topic Goals Goal Patient Goal Type Associated Problems Recent Progress Patient-Stated? Author Eat better, exercise, reach an ideal body weight General No Tiff Pressley, RMA Procedures Procedure Name Priority Date/Time Associated Diagnosis Comments STUDENT FINANCIAL SERVICES COUNSELOR CYTOLOGY REPORT Routine 07/25/2010 5 :22 AM EST from Last 3 Months or Most Recently Relevant to Health Maintenance Results * STUDENT FINANCIAL SERVICES COUNSELOR CYTOLOGY REPORT (07/25/2010 5:22 AM EST) Help Desk Assistant Cytology Report PATIENT NAME:KATELYN STEVEN Help Desk Assistant Cytology Report Accession Number Collected Date/Time Received Date/Time [id number] 07/25/10 05:22 EST 07/26/10 05:22 EST GY Specimen Source Specimen Vag/Cerv/Endocx?: Vaginal/Cervical/E ndocervical Statement of Adequacy Satisfactory for Evaluation. Transformation Zone Absent. Diagnosis NEGATIVE FOR INTRAEPITHELIAL LESION OR MALIGNANCY. Comment The Pap Smear is a screening test that aids in the detection of cervical cancer and cancer precursors. Both false positive and false negative results can occur. The test should be used at regular intervals, and positive results should be confirmed before definitive therapy. Processed using the ThinPrep Hr Generalist automated cytology screening device ([employer]). Engineering Test Mechanic: LETICIA 08/02/2010 Completed by: RAFAEL Gerardo (Electronically signed by) 08/02/2010 [facility] Laboratory [facility] 07/25/2010 5:22 AM EST us Mic Hunter MD PATHOLOGY ORDERABLES Final Res ult [facility] [address] [place] [address] from Last 3 Months or Most Recently Relevant to Health Maintenance Insurance HMO EM HMO
--- OUTSIDE RECORDS SUMMARY | 2025-04-08 12:38 | XMS_ITS | Encounter Summary ---
Author Organization [facility] Address [address] [place] [address] Care Team Providers Care Drilling Fluids Specialist Name Role Phone Pcp, No Primary Care Provider Unavailabl e Reason for Referral * Consultation (Routine) - Closed Specialty Diagnoses / Procedures Referred By Contac t Referred To Contact Rheumatology Diagnoses ENEDINA positive Kale Cantu MD [address] [place] [address] Phone: tel: fax: Referral ID Status Reason Start Date Expiration Date V isits Requested Visits Authorized [id number] Closed Specialty Services Required 06/24/2024 12/24/2025 1 1 Encounter Details Date Type Department Care Team (Late st Contact Info) Description 06/24/2024 Community [facility] [address] [place] [address] Kale Cantu MD [address] [place] [address] ENEDINA positive (Primary Dx) Social History Tobacco Use Types [...] Associated Diagnoses Order Schedule Ambulatory referral to Rheumatology Outpatient Referral Routine ENEDINA positive 1 Occurrences starting 06/24/2024 until 12/22/2025 documented as of this encounter Visit Diagnoses Diagnosis ENEDINA positive- Primary documented in this encounter Additional Health Concerns Assessment Noted Time A fall risk assessment has been complete d for the patient 04/14/2021 1:23 PM EDT A Body Mass Index follow-up plan has been documented for the patient 11/25/2023 2:25 PM EDT documented as of this encounter Care Teams Drilling Fluids Specialist Relationship Specialty Start Date End Date Pcp, [place] [address] PCP - General Family Medicine 02/26/23 documented as of this encounter
--- OUTSIDE RECORDS SUMMARY | 2025-04-08 12:38 | XMS_ITS | Clinical Summary ---
Author Organization [facility] Address [address], [address] [place] [address] Care Team Providers Care Education Courses Sales Representative Name Role Phone Unavailable Primary Care Provider Unavailabl e Social History Tobacco Use Types Packs/Day Years Used Date Smoking Tobacco: Never Assessed Comments Unknown Sex and Gender Information Value Date Recorded Sex Assigned at Not on file Legal Sex Female 12:29 PM EDT Gender Identity Not on file Sexual Orientation Not on file Plan of Treatment Not on [place] [address] [place] [address]
--- OUTSIDE RECORDS SUMMARY | 2025-04-08 12:38 | XMS_ITS | Encounter Summary ---
Author Organization [facility] Address [address] [place] [address] Care Team Providers Care Wireless Team Member Name Role Phone Pcp, No Primary Care Provider Unavailabl e Reason for Referral * Imaging (Routine) - Closed Specialty Diagnoses / Procedures Referred By Contac t Referred To Contact Cardiology Diagnoses Other chest pain Procedures Echo, Adult Transthoracic Complete Kale Cantu MD Phone: tel: fax: Referral ID Status Reason Start Date Expiration Date V isits Requested Visits Authorized [id number] Closed Perform Procedure 11/28/2023 05/29/2025 1 1 Encounter Details Date Type Department Care Team (Late st Contact Info) Description 11/28/2023 Community [facility] [address] [place] [address] Kale Cantu MD [address] [place] [address] Other chest pain (Primary Dx) Social History Tobacco Use [...] of this encounter Plan of Treatment Scheduled Orders Name Type Priority Associated Diagnoses Orde r Schedule XR Chest 2 Views Imaging Routine Other chest pain Expected: 11/28/2023 (Approximate), Expires: 05/29/2025 documented as of this encounter Procedures Procedure Name Priority Date/Time Associated Diagnosis Comments ECHO, ADULT TRANSTHORACIC COMPLETE Routine 01/17/2024 3:21 PM EDT Other chest pain documented in this encounter Results * ECHO, ADULT TRANSTHORACIC COMPLETE (01/17/2024 3:21 PM EDT) Height 162.6 STAS ISCV Weight 73.0 STAS ISCV BSA 1.78 m2 STAS ISCV LVIDd 42 mm STAS ISCV LVIDs 27 mm STAS ISCV IVSd 7 mm STAS ISCV LVPWd 8 mm STAS ISCV LV MASS(C)D 93 g STAS ISCV LV RWT 0.36 mm STAS ISCV LV EDV (3D HM) 124 mL STAS ISCV LV ESV (3D HM) 48 mL STAS ISCV LV EF (3D HM) 61 % STAS ISCV MV E Vmax 100.0 cm/s STAS ISCV MV A Vmax 74.9 cm/s STAS ISCV MV E/A 1.3 cm/s STAS ISCV PA acc time 190 msec STAS ISCV mean PAP -7 mmHg STAS ISCV MV dec time 190 ms STAS ISCV MV P1/2t 55 ms STAS ISCV MVA(P1/2t) 4.0 cm2 STAS ISCV PA VT(ACCEL) -5.2 mmHg STAS ISCV Baseline Systolic BP 123 STAS ISCV Baseline Diastolic BP 79 STAS ISCV Anatomical Region Laterality Modality Echocardiography Narrative 01/17/2024 3:52 PM EDT Left Ventricle: Based on the linear dimension and/or 2D volumes, the left ventricle is normal in size. There is normal left ventricular myocardial thickness and mass. The left ventricular systolic function is normal. The LVEF is visually estimated at 60 - 65%. No regional wall motion abnormalities are seen. There is no recent study available for direct [id number] comparison. Left Ventricle Based on the linear dimension and/or 2D volumes, the left ventricle is normal in size. There is normal left ventricular myocardial thickness and mass. The left ventricular systolic function is normal. The LVEF is visually estimated at 60 - 65%. No regional wall motion abnormalities are seen. Right Ventricle The right ventricle is normal in size. The right ventricular systolic function is normal. Left Atrium The left atrial size is normal. The interatrial septum is intact with no evidence for an atrial septal defect. Right Atrium The right atrial size is normal. IVC/SVC Based on the IVC size and respiratory variation, the estimated right atrial pressure is 3mmHg. Mitral Valve The mitral valve leaflets are normal in appearance with no evidence of mitral valve prolapse. There is mild mitral regurgitation. There is no mitral stenosis. Tricuspid Valve The tricuspid valve is normal in appearance. There is no tricuspid regurgitation. There is no tricuspid stenosis. Aortic Valve The aortic valve appears to be trileaflet. There is no valvular regurgitation. There is no hemodynamically significant valvular aortic stenosis. Pulmonic Valve The pulmonic valve is normal in appearance. There is trace pulmonic regurgitation. There is no pulmonic stenosis. Pericardium No pericardial effusion. Great Vessels The aortic root is normal in size. The main pulmonary artery is normal in size. Study Details A complete transthoracic echocardiogram using two-dimensional (2D), m-mode, color and spectral flow Doppler imaging was performed. BP: 123/79 mmHg. Height: 162.6 cm. Weight: 73.0 kg. BSA: 1.78 m2. Study Recommendation There is no recent study available for direct [id number] comparison. Kale Cantu MD CV ECHO PROCEDURES Final Result documented in this encounter Visit Diagnoses Diagnosis Other chest pain- Primary documented in this encounter Additional Health Concerns Assessment Noted Time A fall risk assessment has been complete d for the patient 04/14/2021 1:23 PM EDT A Body Mass Index follow-up plan has been documented for the patient 11/25/2023 2:25 PM EDT documented as of this encounter Care Teams Wireless Team Member Relationship Specialty Start Date End Date Pcp, [place] [address] PCP - General Family Medicine 02/26/23 documented as of this encounter
[2025-04-09 11:22] LABS: Hepatitis B Surface Antigen Negative (Negative)
[2025-04-09 12:19] LABS: RPR W/RFX Titers Nonreactive (Nonreactive)
== END 2025-04-07 23:59 | disposition home or self-care (01) ==
LOC: LAB.DROPOF 04-08 12:37
PROVIDERS: PCP Nurse Practitioner; Visit Provider Nurse Practitioner
DX: Z20.2 Contact with and (suspected) exposure to infections with a predominantly sexual mode of transmission (principal)
CPT/HCPCS: 86592; 86803; 87389; 87491; 87529; 87591; 87661

== ENCOUNTER 2025-04-29 13:41 | Outpatient (CLI) | payer BC, SELFPAY ==
--- OUTSIDE RECORDS SUMMARY | 2025-04-29 13:45 | XMS_ITS | Encounter Summary ---
Author Organization Healthcare Address [address] [place] [address] Care Team Providers Care Assembler Latches And Springs Name Role Phone Tiff Villalobos APRN Primary Care Provider [phone] Pcp, No Primary Care Provider Unavailabl e Encounter Details Date Type Department Care Team (Late st Contact Info) Description 03/05/2019 Abstract [facility] [address] [place] [address] Dental, Provider, DDS [address] [place], [place] [id number] Social History Tobacco Use Types Packs/Day Years [...] documented as of this encounter Care Teams Assembler Latches And Springs Relationship Specialty Start Date End Date Tiff Villalobos APRN [address] [place] [id number] PCP - General 12/23/20 01/22/23 Pcp, Ban [address] [place] [address] PCP - General Family Medicine 02/26/23 documented as of this encounter
--- OUTSIDE RECORDS SUMMARY | 2025-04-29 13:45 | XMS_ITS | Clinical Summary ---
Author Organization [facility] Address [address] [place] [address] Care Team Providers Care Edge Glue Machine Tender Name Role Phone Pcp, No Primary Care [...] Resolved Date Strep throat 12/16/2024 12/16/2024 Encounters * This document contains information received from the source organization and may not represent a complete record from that organization. Date Type Department Care Team Description 04/27/2025 Immunization [facility] Vaccine [facility] [address] [place] [address] Tonio Elaine RN Need for immunization against influenza (Primary Dx) 02/03/2025 1:15 PM EDT Office Visit Medical Office Building Obstetrics and Gynecology [address] [facility], [address] [place] [address] Qunin Crowell MD History of robot-assisted laparoscopic hysterectomy (Primary Dx) 02/03/2025 Travel from Last 3 Months Immunizations Immunization Administration Dates Next Due Hep A, Unspecified 11/24/2018,03/26/2018 Hep B, adult 10/02/2013,06/05/2013,04/03/2013 Influenza, Unspecified 04/22/2020,2018,05/29/2018,2016,06/05/2016,05/30/2015 Influenza, injectable, quadrivalent 05/31/2014 Influenza, injectable, quadr ivalent, preservative free 05/16/2023,05/16/2021,07/01/2019 Influenza, seasonal, injecta ble, preservative free 04/27/2025,05/18/2016 MMR 05/15/2022,,02/26/1996,1986 Moderna COVID-19 Vaccine (Re d [...] Vaccines (1 - 3-dose SCDM series) 12/06/2011 [id number] Vaccine (3 - Moderna risk series) 08/23/2021 07/26/2021, 03/28/2021 [facility]-Varicella Vaccines (1 of 2 - 13+ 2-dose series) 06/12/2022 [facility]-Depression Screening 07/23/2025 07/23/2024 [facility]-DTaP,Tdap,and Td Vaccines [...] Completed 025, 12/16/2024, 07/27/2024, Additional history exists [facility]-Influenza Vaccine Completed 04/27/2025 , 07/15/2024, 05/16/2023, Additional history exists [facility]-HIB Vaccines Aged Out [...] ORDERABLES Final Resul t Performing Organization Address City/[facility] Co de Phone Number SUNQUEST * [place] Hepatitis C Antibody (07/02/2020 2:43 PM EST) [place] Hepatitis C Ab NEGATIVE Reference Range: Negative SUNQUEST 07/02/2020 2:43 PM EST 07/02/2020 4:05 PM EST Lilia Grimes MD LAB BLOOD ORDERABLES Final Res ult SUNQUEST from Last 3 Months or Most Recently Relevant to Health Maintenance Insurance [employer] Care Teams Edge Glue Machine Tender Relationship Specialty Start Date End Date Pcp, Ban [address] [place] [address] PCP - General Family Medicine 02/26/23
--- OUTSIDE RECORDS SUMMARY | 2025-04-29 13:45 | XMS_ITS | Encounter Summary ---
Author Organization [facility] Address [address] [place] [place] [address] Care Team Providers Care Admitting Counselor Name Role Phone Pcp, No Primary Care Provider Unavailabl e Reason for Referral * Consultation (Routine) - Closed Specialty Diagnoses / Procedures Referred By Contac t Referred To Contact Rheumatology Diagnoses ENEDINA positive Kale Cantu MD [address] [place] [address] Phone: tel: fax: Referral ID Status Reason Start Date Expiration Date V isits Requested Visits Authorized [id number] Closed Specialty Services Required 06/24/2024 12/24/2025 1 1 Encounter Details Date Type Department Care Team (Late st Contact Info) Description 06/24/2024 Community [facility] Community Practice [address] [place] [address] Kale Cantu MD [address] [place] [address] ENEDINA positive (Primary Dx) Social History Tobacco [...] documented as of this encounter Care Teams Admitting Counselor Relationship Specialty Start Date End Date Pcp, [place] [address] PCP - General Family Medicine 02/26/23 documented as of this encounter
--- OUTSIDE RECORDS SUMMARY | 2025-04-29 13:45 | XMS_ITS | Clinical Summary ---
Author Organization [facility] [place] Address [address] [place] [address] Phone Care Team Providers Care Toter Name Role Phone Unavailable Primary Care Provider [...] - SCIP performed by JULIANA CEVALLOS at [facility] BREAST SURGERY Medical History Medical History Date [...] 1 Cindy coombs, Kathleen mejia MD [facility] [address] M CS-LT ranv Last Filed [...] Cervical Cancer Screening 2014 HPV/Pap Cotest 2014 Breast Cancer Screening 2024 COVID-19 Vaccine ( season) 2025 07/26/2021, 03/28/2021 Influenza Vaccine (#1) 2025 , 05/16/2021, 07/01/2019, [...] Procedure Name Priority Date/Time Associated Diagnosis Comments RIGGER THIRD CYTOLOGY REPORT Routine 07/25/2010 5 :22 AM EST from Last 3 Months or Most Recently Relevant to Health Maintenance Results * RIGGER THIRD CYTOLOGY REPORT (07/25/2010 5:22 AM EST) Senior Net C Developer Cytology Report PATIENT NAME:KATELYN STEVEN Senior Net C Developer Cytology Report Accession Number Collected Date/Time Received Date/Time [id number] 07/25/10 05:22 EST 07/26/10 05:22 EST GY [...] before definitive therapy. Processed using the ThinPrep Terminal Worker automated cytology screening device ([employer]). Glass Inspector: LETICIA 08/02/2010 Completed by: RAFAEL Gerardo (Electronically signed by) 08/02/2010 [facility] Laboratory [facility] 07/25/2010 5:22 AM EST us Mic Hunter MD PATHOLOGY ORDERABLES Final Res ult [facility] [address] [place] [address] from Last 3 Months or Most Recently Relevant to Health Maintenance Insurance HMO EM HMO
--- OUTSIDE RECORDS SUMMARY | 2025-04-29 13:45 | XMS_ITS | Encounter Summary ---
Author Organization [facility] Address [address] [place] [address] Care Team Providers Care Longwall Machine Operator Helper Name Role Phone Pcp, No Primary Care Provider Unavailabl e Encounter Details Date Type Department Care Team ([facility] st Contact Info) Description 04/27/[address] [facility] Employee Vaccine Clinic [address] [place] [address] Tonio Elanie, RN EMERGENCY SERVICES Need for immunization against influenza (Primary Dx) Social History Tobacco Use Types [...] as of this encounter Visit Diagnoses Diagnosis Need for immunization against influenza- Primary Need for prophylactic vaccination and inoculation against influenza documented in this encounter Additional Health Concerns Assessment Noted Time A fall risk assessment has been complete d for the patient 07/23/2024 9:06 AM EST A Body Mass Index follow-up plan has been documented for the patient 02/03/2025 1:15 PM EDT documented as of this encounter Care Teams Longwall Machine Operator Helper Relationship Specialty Start Date End Date Pcp, No [address] [place] [address] PCP - General Family Medicine 02/26/23 documented as of this encounter
--- OUTSIDE RECORDS SUMMARY | 2025-04-29 13:45 | XMS_ITS | Encounter Summary ---
Author Organization [facility] Address [address] [place] [address] Care Team Providers Care Poultry Culler Name Role Phone Pcp, No Primary Care Provider Unavailabl e Reason for Referral * Imaging (Routine) - Closed Specialty Diagnoses / Procedures Referred By Contac t Referred To Contact Cardiology Diagnoses Other chest pain Procedures Echo, Adult Transthoracic Complete Kale Cantu MD Phone: tel: fax: Referral ID Status Reason Start Date Expiration Date V isits Requested Visits Authorized [id number] Closed Perform Procedure 11/28/2023 05/29/2025 1 1 Encounter Details Date Type Department Care Team (Late st Contact Info) Description 11/28/2023 Community [facility] Community Practice [address] [place] [phone] Kale Cantu MD [address] [place] [address] Other chest pain (Primary Dx) [...] ISCV MVA(P1/2t) 4.0 cm2 STAS ISCV PA RI(ACCEL) -5.2 mmHg STAS ISCV Baseline Systolic BP [...] is no recent study available for direct nwuw-nm-fmoz comparison. Left Ventricle Based on the linear [...] is no recent study available for direct lobt-aa-evjn comparison. Kale Cantu MD CV ECHO PROCEDURES [...] documented as of this encounter Care Teams Poultry Culler Relationship Specialty Start Date End Date Pcp, [place] [address] PCP - General Family Medicine 02/26/23 documented as of this encounter
--- OUTSIDE RECORDS SUMMARY | 2025-04-29 13:45 | XMS_ITS | Encounter Summary ---
Author Organization [facility] Address [address] [place] [address] Care Team Providers Care Uat Tester Name Role Phone Pcp, No Primary Care Provider Unavailabl e Reason for Referral * Consultation (Routine) - Closed Specialty Diagnoses / Procedures Referred By Contpaz t Referred To Contact Orthopaedic Surgery Diagnoses Right hip pain Kale Cantu MD [address] [place] [address] Phone: tel: fax: [facility] [address], [address] [place] [address] Phone: tel: fax: Referral ID Status Reason Start Date Expiration Date V isits Requested Visits Authorized [id number] Closed Specialty Services Required 06/09/2024 12/09/2025 1 1 Encounter Details Date Type Department Care Team (Late st Contact Info) Description 06/09/2024 Community [facility] Community Practice [address] [place] [address] Kale Cantu MD [address] [place] [address] Right hip pain (Primary Dx) Social History [...] documented as of this encounter Care Teams Uat Tester Relationship Specialty Start Date End Date Pcp, [place] [address] PCP - General Family Medicine 02/26/23 documented as of this encounter
--- OUTSIDE RECORDS SUMMARY | 2025-04-29 13:45 | XMS_ITS | Encounter Summary ---
Author Organization [facility] Address [address] [place] [address] Care Team Providers Care Frit Mixer Name Role Phone Pcp, No Primary Care Provider Unavailabl e Encounter Details Date Type Department Care Team ([facility] Contact Info) Description 01/12/2025 Results Follow-Up Medical Office Building Obstetrics and Gynecology [address] [facility], [address] [place] [address] Quinn Crowell MD [address] [facility] [address] [place] [address] Social History Tobacco Use Types [...] documented as of this encounter Care Teams Frit Mixer Relationship Specialty Start Date End Date Pcp, [place] [address] PCP - General Family Medicine 02/26/23 documented as of this encounter
--- NOTE | 2025-04-29 14:00 | MM_ITS ---
PROCEDURE INFORMATION: Exam: US Right Breast, Complete MG Bilateral Diagnostic Breast Tomosynthesis Exam date and time: 04/29/2025 2:06 PM Age: 39 years old Clinical indication: Concern for right breast lump. TECHNIQUE: Imaging protocol: Complete ultrasound of all four quadrants of the right breast and the retroareolar regions, including ultrasound of the axilla when performed. Bilateral Diagnostic tomosynthesis and 2D mammography including computer-aided detection (CAD) when performed. Unilateral or bilateral exam. Triangular marker placed on lump and spot-compression added on the right. COMPARISON: None. FINDINGS: MAMMOGRAPHY: Breast mammogram findings: Breast composition: The breasts are heterogeneously dense, which may obscure small masses. Mass: None. Architectural distortion: None. Calcifications: No suspicious calcifications. Asymmetric density: Question 4-5 cm focal nodular asymmetry in the right breast, approximately 11-1 o'clock, middle 3rd. Skin thickening: None. Axillary adenopathy: None. Other: No focal mammographic findings area of the triangular marker in the posterior right upper outer quadrant. ULTRASOUND: Breast ultrasound findings: Right sonography, all 4 quadrants, retroareolar and axilla. At the palpable concern in the upper outer quadrant at 11 o'clock 10 cm from the nipple, no sonographic findings demonstrated. At 7 o'clock 3 cm from the nipple, oval hypoechoic avascular mass measuring 0.5 x 0.4 x 0.3 cm. IMPRESSION: Patient will be recalled for additional right diagnostic mammography with spot compression in CC and MLO for further evaluation of nodular asymmetry. Given no corresponding sonographic finding demonstrated, consider adding breast MRI as well. Regarding the palpable concern as indicated with a triangular marker in the posterior right upper outer quadrant, no sonographic or mammographic findings demonstrated.Further evaluation of a palpable abnormality should be based on clinical grounds regardless of radiographic findings or lack thereof. ASSESSMENT: BI-RADS Category 0: Incomplete: Need Additional Imaging Evaluation.
== END 2025-04-29 23:59 | disposition home or self-care (01) ==
LOC: RAD 13:42
PROVIDERS: PCP Nurse Practitioner; Visit Provider Nurse Practitioner
DX: D48.61 Neoplasm of uncertain behavior of right breast (principal); N63.13 Unspecified lump in the right breast, lower outer quadrant; R92.331 Mammographic heterogeneous density, right breast
CPT/HCPCS: 76641; 77062; 77066; G0279

== ENCOUNTER 2025-05-21 09:44 | Outpatient (CLI) | payer BC, SELFPAY ==
--- OUTSIDE RECORDS SUMMARY | 2025-05-21 09:47 | XMS_ITS | Clinical Summary ---
Author Organization [facility] [place] Address [address] [place] [address] Phone Care Team Providers Care Lead Quality Technician Name Role Phone Unavailable Primary Care Provider [...] - SCIP performed by JULIANA CEVALLOS at [facility] BREAST SURGERY Medical History Medical History Date [...] 1 Cindy coombs, Kathleen mejia MD Delivery Location:[facility] [address] Para M CS-LT ranv Last [...] Procedure Name Priority Date/Time Associated Diagnosis Comments STATE GAME WARDEN CYTOLOGY REPORT Routine 07/25/2010 5 :22 AM EST from Last 3 Months or Most Recently Relevant to Health Maintenance Results * STATE GAME WARDEN CYTOLOGY REPORT (07/25/2010 5:22 AM EST) Masonry Instructor Cytology Report PATIENT NAME:KATELYN STEVEN Masonry Instructor Cytology Report Accession Number Collected Date/Time Received Date/Time [id number] 07/25/10 05:22 EST 07/26/10 05:22 EST GY [...] before definitive therapy. Processed using the ThinPrep Direct Marketing Intern automated cytology screening device ([employer]). Conditioner Tumbler: LETICIA 08/02/2010 Completed by: RAFAEL Gerardo (Electronically signed by) 08/02/2010 [facility] Laboratory [facility] 07/25/2010 5:22 AM EST us Mic Hunter MD PATHOLOGY ORDERABLES Final Res ult [facility] [address] [place] [address] from Last 3 Months or Most Recently Relevant to Health Maintenance Insurance HMO EM HMO
--- OUTSIDE RECORDS SUMMARY | 2025-05-21 09:47 | XMS_ITS | Encounter Summary ---
Author Organization [facility] Address [address] [place] [address] Care Team Providers Care Art Critic Name Role Phone Tiff Villalobos APRN Primary Care Provider Pcp, No Primary Care Provider Unavailabl e Encounter Details Date Type Department Care Team (Late st Contact Info) Description 03/05/2019 Abstract [facility] [address] [place] [address] Dental, Provider, DDS [address] [place], [place] [id number] Social History Tobacco Use Types Packs/Day Years Used Date Smoking Tobacco: Never Assessed Comments Unknown Sex and Gender Information Value Date Recorded Sex Assigned at Not on file Legal Sex Female 7:00 PM EDT Gender Identity Not on file Sexual Orientation Not on file documented as of this encounter Plan of Treatment Upcoming Encounters Date Type Department Care Team (Late Contact Info) Description 06/15/2025 10:15 AM EST Appointment [place] [facility] [address] [place] [address] documented as of this encounter Visit Diagnoses Not on filedocumented in this encounter Additional Health Concerns Infection Onset Date Last Indicated Resolved Time COVID-19 Rule-Out 04/13/2021 04/13/2021 04/13/2021 6:21 PM EDT COVID 19 (Confirmed) 04/13/2021 04/13/2021 021 5:23 AM EDT documented as of this encounter Care Teams Art Critic Relationship Specialty Start Date End Date Tiff Villalobos, KIN [address] [facility] [address] [place] [address] PCP - General 12/23/20 01/22/23 Pcp, [place] [address] PCP - General Family Medicine 02/26/23 documented as of this encounter
--- OUTSIDE RECORDS SUMMARY | 2025-05-21 09:47 | XMS_ITS | Encounter Summary ---
Author Organization [facility] Address [address] [place] [address] Care Team Providers Care Wire Coating Operator Metal Name Role Phone Pcp, No Primary Care Provider Unavailabl e Reason for Referral * Consultation (Routine) - Closed Specialty Diagnoses / Procedures Referred By Contpaz t Referred To Contact Orthopaedic Surgery Diagnoses Right hip pain Kale Cantu MD [address] [place] [address] Phone: tel: fax: [place] [facility] [address], [address] [place] [address] Phone: tel: fax: Referral ID Status Reason Start Date Expiration Date V isits Requested Visits Authorized [id number] Closed Specialty Services Required 06/09/2024 12/09/2025 1 1 Encounter Details Date Type Department Care Team (Late st Contact Info) Description 06/09/2024 Community [facility] Community Practice [address] [place] [address] Kale Cantu MD [address] [place] [address] Right hip pain (Primary Dx) Social History [...] Encounters Date Type Department Care Team (Late st Contact Info) Description 06/15/2025 10:15 AM EST Appointment [place] [facility] [address] [place] [address] Scheduled Referrals Name Type Priority Associated Diagnoses [...] documented as of this encounter Care Teams Wire Coating Operator Metal Relationship Specialty Start Date End Date Pcp, [place] [address] PCP - General Family Medicine 02/26/23 documented as of this encounter
--- OUTSIDE RECORDS SUMMARY | 2025-05-21 09:47 | XMS_ITS | Encounter Summary ---
Author Organization [facility] Address [address] [place] [address] Care Team Providers Care Pastry Assistant Name Role Phone Pcp, No Primary Care Provider Unavailabl e Encounter Details Date Type Department Care Team (Late Contact Info) Description 04/27/[address] [facility] Employee Vaccine Clinic [address] [place] [address] Tonio Elaine, RN EMERGENCY SERVICES Need for immunization against [...] Info) Description 06/15/2025 10:15 AM EST Appointment [place] [facility] [address] [place] [address] documented as of this encounter Visit Diagnoses [...] documented as of this encounter Care Teams Pastry Assistant Relationship Specialty Start Date End Date Pcp, Ban [address] [place] [address] PCP - General Family Medicine 02/26/23 documented as of this encounter
--- OUTSIDE RECORDS SUMMARY | 2025-05-21 09:47 | XMS_ITS | Clinical Summary ---
Author Organization [facility] Address [address] [facility], [address] [place] [address] Care Team Providers Care Tractor Trailer Mechanic Name Role Phone Unavailable Primary Care Provider Unavailabl e Social History Tobacco Use Types Packs/Day Years Used Date Smoking Tobacco: Never Assessed Comments Unknown Sex and Gender Information Value Date Recorded Sex Assigned at Not on file Legal Sex Female 12:29 PM EDT Gender Identity Not on file Sexual Orientation Not on file Plan of Treatment Not on file [place] [address] [address]
--- OUTSIDE RECORDS SUMMARY | 2025-05-21 09:47 | XMS_ITS | Encounter Summary ---
Author Organization [facility] Address [address] [place] [address] Care Team Providers Care Occupational Medicine Physician Name Role Phone Pcp, No Primary Care Provider Unavailabl e Encounter Details Date Type Department Care Team ([facility] Contact Info) Description 04/29/2025 Orders Only External Location [address] [place] [address] Provider, External Social History Tobacco Use Types Packs/Day Years [...] Info) Description 06/15/2025 10:15 AM EST Appointment [place] [facility] [address] [place] [address] documented as of this encounter Procedures Procedure Name Priority Date/Time Associated Diagnosis Comments US BREAST OUTSIDE IMAGES 04/29/2025 2:06 PM EDT documented in this encounter Results * US BREAST OUTSIDE IMAGES (04/29/2025 2:06 PM EDT) Anatomical Region Laterality Modality Breast Mammography 04/29/2025 2:06 PM EDT us External Provider IMG BI PROCEDURES Edited Resul t - Final documented in this encounter Visit Diagnoses Not on filedocumented in this encounter Additional Health Concerns Assessment Noted Time A fall risk assessment has been complete d for the patient 07/23/2024 9:06 AM EST A Body Mass Index follow-up plan has been documented for the patient 02/03/2025 1:15 PM EDT documented as of this encounter Care Teams Occupational Medicine Physician Relationship Specialty Start Date End Date Pcp, [place] [address] PCP - General Family Medicine 02/26/23 documented as of this encounter
--- OUTSIDE RECORDS SUMMARY | 2025-05-21 09:47 | XMS_ITS | Encounter Summary ---
Author Organization [facility] Address [address] [place] [address] Care Team Providers Care Cash Clerk Name Role Phone Pcp, No Primary Care Provider Unavailabl e Reason for Referral * Consultation (Routine) - Closed Specialty Diagnoses / Procedures Referred By Contac t Referred To Contact Rheumatology Diagnoses ENEDINA positive Kale Cantu MD [address] [place] [address] Phone: tel: fax: Referral ID Status Reason Start Date Expiration Date V isits Requested Visits Authorized [id number] Closed Specialty Services Required 06/24/2024 12/24/2025 1 1 Encounter Details Date Type Department Care Team (Late st Contact Info) Description 06/24/2024 Community [facility] Community Practice [address] [place] [address] Kale Cantu MD [address] [place] [address] ENEDINA positive (Primary Dx) Social History Tobacco [...] Info) Description 06/15/2025 10:15 AM EST Appointment [place] [facility] Rad[facility] [address] [place] [address] Scheduled Referrals Name Type Priority Associated Diagnoses [...] documented as of this encounter Care Teams Cash Clerk Relationship Specialty Start Date End Date Pcp, [place] [address] PCP - General Family Medicine 02/26/23 documented as of this encounter
--- OUTSIDE RECORDS SUMMARY | 2025-05-21 09:47 | XMS_ITS | Clinical Summary ---
Author Organization [facility] Address [address] [place] [address] Care Team Providers Care Manager Front Name Role Phone Pcp, No Primary Care [...] Active Problems Problem Noted Date Diagnosed Date Conjunctivitis 12/16/2024 Adenomyosis 07/27/2024 Abnormal uterine bleeding (AUB) 11/25/2023 COVID-19 04/13/2021 UTI symptoms 06/23/2019 Seasonal allergies 07/07/2018 Vaginal bleeding during , antepartum Resolved Problems Problem Noted Date Diagnosed Date Resolved Date Acute URI 12/16/2024 05/02/2025 Gastroenteritis 12/16/2024 05/02/2025 Strep throat 12/16/2024 12/16/2024 Abscess 10/22/2019 05/02/2025 Encounters * This document contains information received from the source organization and may not represent a complete record from that organization. Date Type Department Care Team Description 04/29/2025 Orders Only External Location [address] [place] [id number] Provider, External 04/29/2025 Orders Only External Location [address] [place] [address] Provider, External 04/27/2025 Immunization [facility] [address] [place] [address] Tonio Elaine RN Need for immunization against influenza (Primary Dx) from Last 3 Months Immunizations Immunization Administration [...] 02/03/2025 12:59 PM EDT Plan of Treatment Upcoming Encounters Date Type Department Care Team (Late st Contact Info) Description 06/15/2025 10:15 AM EST Appointment [facility] Radiology [address] [place] [address] Health Maintenance Due Date Last Done Comments [facility]-/Child/Adol SDOH Screenings 1984 [facility]- SDOH Screenings 2002 [facility]-Adult SDOH Screenings 2002 [facility]-Pneumococcal Vaccine: Pediatrics (0 to 5 Years) and At-Risk Patients (6 to 49 Years) (1 of 2 - PCV) 12/06/2003 [facility]-Zoster Vaccines (1 of 2) 12/06/2003 HPV Vaccines (1 - Risk 3-dose SCDM series) 12/06/2011 [id number] Vaccine (3 - Moderna risk series) 08/23/2021 [...] BREAST OUTSIDE IMAGES 04/29/2025 2:06 PM EDT MAMMOGRAPHY OUTSIDE IMAGES 04/29/2025 1:50 PM EDT HEPATITIS C ANTIBODY - ED W/REFLEX TO HCV QUANT PCR Routine 07/02/2020 2:43 PM EST HIV 1/2 ANTIBODY/ANTIGEN SCREEN WITH REFLEX TO HIV I/II DIFFERENTIATION Routine 07/02/2020 2:43 PM EST from Last 3 Months or Most Recently Relevant to Health Maintenance Results * US BREAST OUTSIDE IMAGES (04/29/2025 2:06 PM EDT) Anatomical Region Laterality Modality Breast Mammography 04/29/2025 2:06 PM EDT External Provider IMG BI PROCEDURES Edited Resul t - Final * MAMMOGRAPHY OUTSIDE IMAGES (04/29/2025 1:50 PM EDT) Anatomical Region Laterality Modality Breast Mammography 04/29/2025 1:50 PM EDT us External Provider IMG BI PROCEDURES Edited Resul t - Final * HIV 1 & 2 Antibody/Antigen Screen (07/02/2020 2:43 PM EST) HIV 1 Result NONREACTIVE Screening for HIV 1 and 2 antibodies is NONREACTIVE. No confirmatory testing is required. SUNQUEST 07/02/2020 2:43 PM EST 07/02/2020 4:05 PM EST Osmin Brown LAB BLOOD ORDERABLES Final Resul t [place] * [place] Hepatitis C Antibody (07/02/2020 2:43 PM EST) [place] Hepatitis C Ab NEGATIVE Reference Range: Negative SUNQUEST 07/02/2020 2:43 PM EST 07/02/2020 4:05 PM EST us Lilia Grimes MD LAB BLOOD ORDERABLES Final Res ult SUNQUEST from Last 3 Months or Most Recently Relevant to Health Maintenance Insurance Care Teams Manager Front Relationship Specialty Start [place] [address] PCP - General Family Medicine 02/26/23
--- OUTSIDE RECORDS SUMMARY | 2025-05-21 09:47 | XMS_ITS | Encounter Summary ---
Author Organization [facility] Address [address] [place] [address] Care Team Providers Care Corrosion Engineer Name Role Phone Pcp, No Primary Care Provider Unavailabl e Reason for Referral * Imaging (Routine) - Closed Specialty Diagnoses / Procedures Referred By Contac t Referred To Contact Cardiology Diagnoses Other chest pain Procedures Echo, Adult Transthoracic Complete Kale Cantu MD Phone: tel: fax: Referral ID Status Reason Start Date Expiration Date V isits Requested Visits Authorized [id number] Closed Perform Procedure 11/28/2023 05/29/2025 1 1 Encounter Details Date Type Department Care Team (Late st Contact Info) Description 11/28/2023 Community [facility] [address] [place] [address] Kale Cantu MD [address] [place], [place] [...] Info) Description 06/15/2025 10:15 AM EST Appointment [facility] Radiology [address] [place] [address] Scheduled Orders Name Type Priority Associated Diagnoses [...] ISCV MVA(P1/2t) 4.0 cm2 STAS ISCV PA MA(ACCEL) -5.2 mmHg STAS ISCV Baseline Systolic BP [...] is no recent study available for direct [id number] comparison. Left Ventricle Based on the linear [...] is no recent study available for direct [id number] comparison. Kale Cantu MD CV ECHO PROCEDURES [...] documented as of this encounter Care Teams Corrosion Engineer Relationship Specialty Start Date End Date Pcp, [place] [address] PCP - General Family Medicine 02/26/23 documented as of this encounter
--- OUTSIDE RECORDS SUMMARY | 2025-05-21 09:47 | XMS_ITS | Encounter Summary ---
Author Organization [facility] Address [address] [place] [address] Care Team Providers Care Museum Technician Name Role Phone Pcp, No Primary Care Provider Unavailabl e Encounter Details Date Type Department Care Team ([facility] Contact Info) Description 04/29/2025 Orders Only External Location [address] [place] [address] Provider, External Social History Tobacco Use Types [...] EST Appointment [facility]iology [address] [place] [address] documented as of this encounter Procedures Procedure Name Priority Date/Time Associated Diagnosis Comments MAMMOGRAPHY OUTSIDE IMAGES 04/29/2025 1:50 PM EDT documented in this encounter Results * MAMMOGRAPHY OUTSIDE IMAGES (04/29/2025 1:50 PM [...] documented as of this encounter Care Teams Museum Technician Relationship Specialty Start Date End Date Pcp, Ban [address] [place] [address] PCP - General Family Medicine 02/26/23 documented as of this encounter
--- NOTE | 2025-05-21 10:00 | MM_ITS ---
PROCEDURE INFORMATION: Exam: MG Right Diagnostic Breast Tomosynthesis Exam date and time: 05/21/2025 10:02 AM Age: 39 years old Clinical indication: Patient recalled on the basis of a mammogram 04/29/2025 for further evaluation of questioned 4-5 cm focal nodular asymmetry in the right breast, approximately 11-1 o'clock, middle 3rd. TECHNIQUE: Imaging protocol: Right Diagnostic tomosynthesis and 2D mammography including computer-aided detection (CAD) when performed. Unilateral or bilateral exam. COMPARISON: 1. MG MM DIG MAMM BI DX W/CAD 04/29/2025 1:50 PM 2. US BREAST RT COMPLETE 04/29/2025 2:06 PM FINDINGS: MAMMOGRAPHY: Breast composition: The breast is heterogeneously dense, which may obscure small masses. Density based on the most recent screening mammogram report. Breast mammogram findings: Recalled questioned nodular asymmetry best seen in the central breast, is similar or less prominent, best seen in the CC projection, with some interspersed fat. IMPRESSION: See comment Similar nodular asymmetry in the right central breast with no sonographic finding demonstrated 04/29/2025. As per prior report, related to the palpable concern in the posterior right upper outer quadrant, no sonographic or mammographic findings.Further evaluation of a palpable abnormality should be based on clinical grounds regardless of radiographic findings or lack thereof. Probably benign right sonographic mass at 7 o'clock. Consider adding breast MRI at this time, and if not possible, advise six-month follow-up right diagnostic mammogram and right ultrasound unless otherwise clinically indicated. ASSESSMENT: BI-RADS Category 3: Probably benign.
== END 2025-05-21 23:59 | disposition home or self-care (01) ==
LOC: RAD 09:44
PROVIDERS: PCP Nurse Practitioner; Visit Provider Nurse Practitioner
DX: N63.13 Unspecified lump in the right breast, lower outer quadrant (principal); R92.331 Mammographic heterogeneous density, right breast
CPT/HCPCS: 77061; 77065; G0279